=== PATIENT | female | born 1960 | race Caucasian/White ===

== ENCOUNTER 2024-05-01 10:23 | Outpatient (OUT) | payer MEDICAID, SELFPAY ==
[2024-05-01] MEDS: REGADENOSON 0.4 MG/5 ML SYRINGE IV (12:23)
[2024-05-01] MEDS: AMINOPHYLLINE 250 MG/10 ML VIAL 50 MG IV (12:37)
--- NOTE | 2024-05-01 14:14 | PM.STRESS ---
Stress Test Stress Test Requesting physician: GUERO TORRES Procedure: Lexiscan Stress Test General Information: Reason for Stress Test: [Dyspnea] Cardiac History and Risk Factors: [HTN, prior CVA, former smoker] Resting 12 - Lead Electrocardiogram: Sinus bradycardia Anteroseptal infarct age indeterminate Abnormal ECG Stress Test: Protocol: [Lexiscan] Exercise Capacity: [N/A] Blood Pressure Response: [N/A] Rhythm: [Sinus, PVCs] ST - Response: [No significant ST T wave changes] Patient Response: [] Interpretation: 1. No ischemic ECG changes seen on Lexiscan stress test 2. Nuclear images are to be read, interpreted, and reported separately
== END 2024-05-01 10:24 | disposition home or self-care (01) ==
LOC: NM 10:25
PROVIDERS: Visit Provider Internal Medicine Cardiovascular Disease
DX: R07.9 Chest pain, unspecified (principal); R06.02 Shortness of breath
CPT/HCPCS: 78452; 93017; A9500; J0280; J2785

== ENCOUNTER 2024-05-22 08:46 | Outpatient (OUT) | payer MEDICARE, MEDICAID, SELFPAY ==
--- NOTE | 2024-05-22 09:00 | CA_ITS ---
Patient Name: TIMUR CORRAL MR#: [id number] : 1960 Exam Date: 05/22/2024 Ordering Doctor: GUERO TORRES M.D. ECHOCARDIOGRAM REPORT PROCEDURE: CA ECHO DOPPLER COMPLETE INDICATIONS: Dyspnea on exertion, COPD, hypertension COMPARISON: None. DESCRIPTION: COMPLETE ECHOCARDIOGRAM Real-time transthoracic echocardiography with 2D, M-mode, spectral and color flow Doppler performed. QUALITY: Technical quality was good. LEFT VENTRICLE: Normal chamber size. Proximal septal hypertrophy (sigmoid septum). LV EF: Global left ventricular systolic function is normal; visually estimated ejection fraction is 55 to 60%. No significant wall motion abnormalities. DIASTOLIC: Normal diastolic function. ATRIAL SEPTUM: Visually appears intact. LEFT ATRIUM: Normal chamber size. RIGHT ATRIUM: Normal chamber size. RIGHT VENTRICLE: Normal chamber size. Normal right ventricular systolic function. TRICUSPID VALVE: Normal mobility and thickness. No stenosis with no regurgitation. Unable to assess right-sided pressures due to lack of measurable tricuspid regurgitation. MITRAL VALVE: Normal mobility and thickness. No evidence of mitral valve stenosis. There is no mitral annular calcification. No mitral regurgitation. AORTIC VALVE: Normal trileaflet appearance. No visible sclerosis. Normal leaflet mobility. No evidence of aortic valve stenosis. No aortic regurgitation. AORTIC ROOT: Normal diameter and appearance. Ascending aorta is normal in size. PULMONIC VALVE: Normal thickness and mobility. No stenosis. Trivial regurgitation. PERICARDIUM: No evidence of pericardial effusion. IVC: Collapses with inspirations. IVC is normal in size. CONCLUSION: 1. Global left ventricular systolic function is normal; visually estimated ejection fraction is 55 to 60% 2. Normal right ventricular size and systolic function 3. Normal diastolic function 4. The left atrium is normal in size 5. No significant valvular abnormalities Adult Echocardiography Procedure Report Left Ventricle LVEDD (3.7 - 5.6 cm): 4.12 cm LVESD (2.2 - 4.0 cm): 2.96 cm LVIVS thickness (0.6 - 1.2 cm): 1.30 cm LVPW thickness (0.5 - 1.0 cm): 0.97 cm e': 0.08 m/s E - e': 8.86 LVOT Max Gradient: 6.17 mm[Hg] LVOT Area (cm2): 1.24 m/s Peak Velocity (LVOT): 1.24 m/s Mean Velocity (LVOT): 0.88 m/s LVOT Diameter 2.54 cm Left Atrium LA Volume Index (2D A2C): 31.45 ml/m2 Left Atrium Systolic Dimension: 4.58 cm Mitral Valve MV E to A Ratio: 0.67 Mitral Valve A-Wave Peak Velocity: 1.05 m/s Mitral Valve E-Wave Peak Velocity: 0.70 m/s Right Ventricle Aorta AO Root Diam: 3.29 cm Ascending Ao Diam: 2.99 cm Aortic Valve AoV Area (Peak Burt): 5.01 cm2, 5.01 cm2 AoV Area (VTI): 4.98 cm2, 4.98 cm2 Peak Velocity(Antegrade Flow): 1.26 m/s Peak Gradient(Antegrade Flow): 6.35 mm[Hg] Mean Velocity(Antegrade Flow): 0.93 m/s Mean Gradient(Antegrade Flow): 3.88 mm[Hg] Velocity Time Integral: 34.26 cm Tricuspid Valve Pulmonic Valve Mean Gradient: 2.20 mm[Hg] Mean Velocity: 0.70 m/s Peak Velocity: 1.03 m/s, 1.11 m/s Peak Gradient: 4.25 mm[Hg], 4.92 mm[Hg] Right Atrium Right Atrium Systolic Pressure: 40.92 ml, 40.92 ml Dictated by: Montrell Fuentes M.D. on 05/22/2024 at 15:55 Approved by: Montrell Fuentes M.D. on 05/22/2024 at 15:58
== END 2024-05-22 08:47 | disposition home or self-care (01) ==
LOC: CARD 08:46
PROVIDERS: Visit Provider Internal Medicine Cardiovascular Disease
DX: R07.9 Chest pain, unspecified (principal); R06.02 Shortness of breath
CPT/HCPCS: 93306

== ENCOUNTER 2025-01-23 12:34 | Outpatient (OUT) | payer MEDICARE, MEDICAID, SELFPAY ==
--- NOTE | 2025-01-23 12:44 | CT_ITS ---
The [address] [address] Patient Name: TIMUR CORRAL MRN: [id number] date: 1960 Sex: F Assigned Patient Location: CT Current Patient Location: CT Accession/Order Number: [id number] Exam Date: 01/23/2025 12:55 Report Date: 01/23/2025 13:52 At the request of: NICOLE QURESHI Procedure: CT lumbar spine wo con CT CERVICAL, THORACIC AND LUMBAR SPINE WITHOUT CONTRAST WITH 3-D RECONSTRUCTIONS CLINICAL DATA: Neck, back and left arm pain since fall 2 weeks ago. COMPARISON: None Spiral images were obtained through the cervical, thoracic and lumbar spine without contrast. Sagittal, coronal and 3-D volume rendered reconstructions were reviewed. This CT exam was performed using one or more following dose reduction techniques: Automated exposure control, adjustment of the mA and/or kV according to patient size, or use of iterative reconstruction technique. CERVICAL: There is motion artifact. The bony structures are osteopenic. There is minor retrolisthesis of C2 on C3 and C5 on C6. No acute compression fractures are identified. There is disc space narrowing at C5-6. There are small endplate spurs as well as mild facet disease. Minor disc bulging and some ossification of the posterior longitudinal ligament at C2-3 is present with slight thecal sac effacement. Mild bony foraminal encroachment is visualized at C5-6 on the left. The atlantoaxial relationship is maintained. No prevertebral soft tissue swelling is seen. There are few small shotty cervical lymph nodes. There is carotid artery plaque. THORACIC: There is osteopenia. Dextroscoliotic curvature is seen. Mild compression deformity is visualized at T5. Slight wedge deformity of is also noted at T10 and T11. Chronicity is unknown without priors, though more likely chronic. There is also minor superior endplate concavity at the upper thoracic levels. No displacement is noted. There are degenerative endplate changes with Schmorl's nodes, minor sclerosis and spurring. There is vacuum phenomenon at the lower thoracic levels. The ribs within the [id number] are intact. No paraspinal soft tissue abnormalities are visualized. Atherosclerotic disease is present. Minor scarring is noted at the right lung apex and imaged lung bases. LUMBAR: There is osteopenia. There is levoscoliotic curvature and mild accentuation of the normal lumbar lordosis. No acute compression fractures are identified. No significant displacement is seen. Mild disc space narrowing is present at L4-5 and L5-S1 where there is vacuum phenomenon. There are small lumbar endplate spurs. Lower lumbar facet hypertrophy is visualized greatest at L4-5 on the right. There is disc bulging along with facet and ligamentous hypertrophy at L2-L3 and L3-4. Mild to moderate associated central stenosis and at least mild neural foraminal narrowing is seen. At L4-5, there is disc bulging with moderate associated central stenosis. There is at least mild left and moderate to severe right foraminal stenosis where asymmetric hypertrophy is present. At the lumbosacral junction, there is asymmetric disc bulging in the left parasagittal region. There is also endplate hypertrophy which is asymmetric extending laterally on the left. There is moderate to severe left foraminal encroachment and at least mild on the right. The SI joints are intact. There is no acute fracture at the sacrum or imaged bony pelvis. Patient has a partially imaged left hip prosthesis. No paraspinal soft tissue abnormalities are noted. Atherosclerotic disease is seen. There is no obstructive uropathy or stone disease in the field of view. CT/CT lumbar spine wo con IMPRESSION: S-SHAPED LUMBAR SCOLIOTIC CURVATURE. MINOR CHRONIC APPEARING THORACIC COMPRESSION DEFORMITIES, DESCRIBED. IF PRIOR IMAGING IS AVAILABLE, COMPARISON MAY BE HELPFUL. IF THERE IS CONTINUED CONCERN, FOLLOW-UP WITH BONE SCAN OR MRI COULD BE CONSIDERED. NO OTHER SUSPECTED ACUTE BONY INJURY. DISCOVERTEBRAL DEGENERATIVE CHANGES. Impression dictated by: Yumi Hernandez M.D. 01/23/2025 1:52 PM Dictation Location: [facility] Electronically authenticated by: [id number] Y Date: 01/23/2025 13:52
--- NOTE | 2025-01-23 12:44 | CT_ITS ---
The [address] [address] Patient Name: TIMUR CORRAL MRN: [id number] date: 1960 Sex: F Assigned Patient Location: CT Current Patient Location: CT Accession/Order Number: [id number] Exam Date: 01/23/2025 12:55 Report Date: 01/23/2025 13:52 At the request of: NICOLE QURESHI Procedure: CT lumbar spine wo con CT CERVICAL, THORACIC AND LUMBAR SPINE WITHOUT CONTRAST WITH 3-D RECONSTRUCTIONS CLINICAL DATA: Neck, back and left arm pain since fall 2 weeks ago. COMPARISON: None Spiral images were obtained through the cervical, thoracic and lumbar spine without contrast. Sagittal, coronal and 3-D volume rendered reconstructions were reviewed. This CT exam was performed using one or more following dose reduction techniques: Automated exposure control, adjustment of the mA and/or kV according to patient size, or use of iterative reconstruction technique. CERVICAL: There is motion artifact. The bony structures are osteopenic. There is minor retrolisthesis of C2 on C3 and C5 on C6. No acute compression fractures are identified. There is disc space narrowing at C5-6. There are small endplate spurs as well as mild facet disease. Minor disc bulging and some ossification of the posterior longitudinal ligament at C2-3 is present with slight thecal sac effacement. Mild bony foraminal encroachment is visualized at C5-6 on the left. The atlantoaxial relationship is maintained. No prevertebral soft tissue swelling is seen. There are few small shotty cervical lymph nodes. There is carotid artery plaque. THORACIC: There is osteopenia. Dextroscoliotic curvature is seen. Mild compression deformity is visualized at T5. Slight wedge deformity of is also noted at T10 and T11. Chronicity is unknown without priors, though more likely chronic. There is also minor superior endplate concavity at the upper thoracic levels. No displacement is noted. There are degenerative endplate changes with Schmorl's nodes, minor sclerosis and spurring. There is vacuum phenomenon at the lower thoracic levels. The ribs within the [id number] are intact. No paraspinal soft tissue abnormalities are visualized. Atherosclerotic disease is present. Minor scarring is noted at the right lung apex and imaged lung bases. LUMBAR: There is osteopenia. There is levoscoliotic curvature and mild accentuation of the normal lumbar lordosis. No acute compression fractures are identified. No significant displacement is seen. Mild disc space narrowing is present at L4-5 and L5-S1 where there is vacuum phenomenon. There are small lumbar endplate spurs. Lower lumbar facet hypertrophy is visualized greatest at L4-5 on the right. There is disc bulging along with facet and ligamentous hypertrophy at L2-L3 and L3-4. Mild to moderate associated central stenosis and at least mild neural foraminal narrowing is seen. At L4-5, there is disc bulging with moderate associated central stenosis. There is at least mild left and moderate to severe right foraminal stenosis where asymmetric hypertrophy is present. At the lumbosacral junction, there is asymmetric disc bulging in the left parasagittal region. There is also endplate hypertrophy which is asymmetric extending laterally on the left. There is moderate to severe left foraminal encroachment and at least mild on the right. The SI joints are intact. There is no acute fracture at the sacrum or imaged bony pelvis. Patient has a partially imaged left hip prosthesis. No paraspinal soft tissue abnormalities are noted. Atherosclerotic disease is seen. There is no obstructive uropathy or stone disease in the field of view. CT/CT thoracic spine wo con IMPRESSION: S-SHAPED LUMBAR SCOLIOTIC CURVATURE. MINOR CHRONIC APPEARING THORACIC COMPRESSION DEFORMITIES, DESCRIBED. IF PRIOR IMAGING IS AVAILABLE, COMPARISON MAY BE HELPFUL. IF THERE IS CONTINUED CONCERN, FOLLOW-UP WITH BONE SCAN OR MRI COULD BE CONSIDERED. NO OTHER SUSPECTED ACUTE BONY INJURY. DISCOVERTEBRAL DEGENERATIVE CHANGES. Impression dictated by: Yumi Hernandez M.D. 01/23/2025 1:52 PM Dictation Location: [facility] Electronically authenticated by: [id number] Y Date: 01/23/2025 13:52
--- NOTE | 2025-01-23 12:44 | CT_ITS ---
The [address] [address] Patient Name: TIMUR CORRAL MRN: [id number] date: 1960 Sex: F Assigned Patient Location: CT Current Patient Location: CT Accession/Order Number: [id number] Exam Date: 01/23/2025 12:55 Report Date: 01/23/2025 13:52 At the request of: NICOLE QURESHI Procedure: CT lumbar spine wo con CT CERVICAL, THORACIC AND LUMBAR SPINE WITHOUT CONTRAST WITH 3-D RECONSTRUCTIONS CLINICAL DATA: Neck, back and left arm pain since fall 2 weeks ago. COMPARISON: None Spiral images were obtained through the cervical, thoracic and lumbar spine without contrast. Sagittal, coronal and 3-D volume rendered reconstructions were reviewed. This CT exam was performed using one or more following dose reduction techniques: Automated exposure control, adjustment of the mA and/or kV according to patient size, or use of iterative reconstruction technique. CERVICAL: There is motion artifact. The bony structures are osteopenic. There is minor retrolisthesis of C2 on C3 and C5 on C6. No acute compression fractures are identified. There is disc space narrowing at C5-6. There are small endplate spurs as well as mild facet disease. Minor disc bulging and some ossification of the posterior longitudinal ligament at C2-3 is present with slight thecal sac effacement. Mild bony foraminal encroachment is visualized at C5-6 on the left. The atlantoaxial relationship is maintained. No prevertebral soft tissue swelling is seen. There are few small shotty cervical lymph nodes. There is carotid artery plaque. THORACIC: There is osteopenia. Dextroscoliotic curvature is seen. Mild compression deformity is visualized at T5. Slight wedge deformity of is also noted at T10 and T11. Chronicity is unknown without priors, though more likely chronic. There is also minor superior endplate concavity at the upper thoracic levels. No displacement is noted. There are degenerative endplate changes with Schmorl's nodes, minor sclerosis and spurring. There is vacuum phenomenon at the lower thoracic levels. The ribs within the [id number] are intact. No paraspinal soft tissue abnormalities are visualized. Atherosclerotic disease is present. Minor scarring is noted at the right lung apex and imaged lung bases. LUMBAR: There is osteopenia. There is levoscoliotic curvature and mild accentuation of the normal lumbar lordosis. No acute compression fractures are identified. No significant displacement is seen. Mild disc space narrowing is present at L4-5 and L5-S1 where there is vacuum phenomenon. There are small lumbar endplate spurs. Lower lumbar facet hypertrophy is visualized greatest at L4-5 on the right. There is disc bulging along with facet and ligamentous hypertrophy at L2-L3 and L3-4. Mild to moderate associated central stenosis and at least mild neural foraminal narrowing is seen. At L4-5, there is disc bulging with moderate associated central stenosis. There is at least mild left and moderate to severe right foraminal stenosis where asymmetric hypertrophy is present. At the lumbosacral junction, there is asymmetric disc bulging in the left parasagittal region. There is also endplate hypertrophy which is asymmetric extending laterally on the left. There is moderate to severe left foraminal encroachment and at least mild on the right. The SI joints are intact. There is no acute fracture at the sacrum or imaged bony pelvis. Patient has a partially imaged left hip prosthesis. No paraspinal soft tissue abnormalities are noted. Atherosclerotic disease is seen. There is no obstructive uropathy or stone disease in the field of view. CT/CT cervical spine wo con IMPRESSION: S-SHAPED LUMBAR SCOLIOTIC CURVATURE. MINOR CHRONIC APPEARING THORACIC COMPRESSION DEFORMITIES, DESCRIBED. IF PRIOR IMAGING IS AVAILABLE, COMPARISON MAY BE HELPFUL. IF THERE IS CONTINUED CONCERN, FOLLOW-UP WITH BONE SCAN OR MRI COULD BE CONSIDERED. NO OTHER SUSPECTED ACUTE BONY INJURY. DISCOVERTEBRAL DEGENERATIVE CHANGES. Impression dictated by: Yumi Hernandez M.D. 01/23/2025 1:52 PM Dictation Location: [facility] Electronically authenticated by: [id number] Y Date: 01/23/2025 13:52
== END 2025-01-23 12:35 | disposition home or self-care (01) ==
LOC: CT 12:37
DX: M54.12 Radiculopathy, cervical region (principal); M54.50 Low back pain, unspecified; M41.86 Other forms of scoliosis, lumbar region; M51.369 Other intervertebral disc degeneration, lumbar region without mention of lumbar back pain or lower extremity pain; M54.9 Dorsalgia, unspecified
CPT/HCPCS: 72125; 72128; 72131; 76376